=== PATIENT | male | born 2000 | race Caucasian/White ===

== ENCOUNTER 2021-04-16 12:13 | Emergency (ER) | payer MEDICAID ==
[~2021-04-16] VITALS: Ht 177.8 cm; Wt 75.0 kg
[2021-04-16 13:12] LABS: BASOPHILS % 0.5 % (0.0-2.0); EOSINOPHILS % 3.7 % (0.0-5.0); HEMATOCRIT. 47.4 % (42.0-52.0); HEMOGLOBIN. 16.5 g/dL (14.0-18.0); LYMPHOCYTES % 27.8 % (20.0-50.0); MEAN CORPUSCULAR HEMOGLOBIN 31.3 pg (28.0-32.0); MEAN CORPUSCULAR VOLUME 89.6 fL (80.0-94.0); MEAN PLATELET VOLUME 7.6 fl (7.4-10.4); MONOCYTES % 6.9 % (2.0-8.0); NEUTROPHILS % 61.1 % (40.0-76.0); PLATELET 286 x1000/uL (130-400); RED BLOOD CELL COUNT 5.29 mill/uL (4.7-6.1); RED CELL DISTRIBUTION WIDTH 12.9 % (11.6-14.6)
[2021-04-16 13:17] LABS: CHLORIDE 103 mEq/L (98-107)
[2021-04-16 15:56] VITALS: BP 114/73
== END 2021-04-16 16:20 | disposition home or self-care (01) ==
LOC: ER 12:13
DX: R16.0 Hepatomegaly, not elsewhere classified (principal); R10.11 Right upper quadrant pain; E11.9 Type 2 diabetes mellitus without complications; Z91.013 Allergy to seafood
CPT/HCPCS: 36415; 76705; 80053; 85025; 99284

== ENCOUNTER 2023-09-24 09:54 | Emergency (ER) | payer MEDICAID, OTHER ==
[~2023-09-24] VITALS: Ht 172.7 cm; Wt 68.0 kg
[2023-09-24 10:05] VITALS: BP 128/87; TEMP 98.4; O2SAT 99
[2023-09-24 10:08] VITALS: PULSE 102
[2023-09-24 11:00] LABS: BASOPHILS % 0.4 % (0.0-2.0); DIFFERENTIAL COMMENT 0; EOSINOPHILS % 1.5 % (0.0-5.0); HEMATOCRIT. 43.4 % (42.0-52.0); HEMOGLOBIN. 15.5 g/dL (14.0-18.0); LYMPHOCYTES % 19.1 % (20.0-50.0); MEAN CORPUSCULAR HGB CONC 35.7 g/dL (31.0-37.0); MEAN CORPUSCULAR VOLUME 89.7 fL (80.0-94.0); MEAN PLATELET VOLUME 7.4 fl (7.4-10.4); MONOCYTES % 7.1 % (2.0-8.0); NEUTROPHILS % 71.9 % (40.0-76.0); PLATELET 328 x1000/uL (130-400); RED BLOOD CELL COUNT 4.84 mill/uL (4.7-6.1); RED CELL DISTRIBUTION WIDTH 13.4 % (11.6-14.6); WHITE BLOOD COUNT 9.9 x1000/uL (4.5-11.0)
[2023-09-24] MEDS ORDERED: LORAZEPAM 1MG TABLET PO ONE (11:15)
[2023-09-24 11:23] LABS: CALCIUM 9.7 mg/dL (8.7-10.4); CARBON DIOXIDE 21 mEq/L (21-32); CHLORIDE 101 mEq/L (98-107); CREATININE 0.8 mg/dL (0.6-1.3); GLUCOSE 260 mg/dL (70-105); POTASSIUM 4.3 mEq/L (3.5-5.1); SODIUM 134 mEq/L (136-145); UREA NITROGEN BLOOD 9 mg/dL (9-23)
[2023-09-24 11:31] LABS: TROPONIN I HIGH SENSITIVITY < 4 ng/L (3.0-53)
[2023-09-24 13:07] LABS: TROPONIN I HIGH SENSITIVITY < 4 ng/L (3.0-53)
[2023-09-24] MEDS: LORAZEPAM 1MG TABLET PO NR (13:29)
== END 2023-09-24 14:45 | disposition home or self-care (01) ==
LOC: ER 09:54
DX: R07.9 Chest pain, unspecified (principal); E11.9 Type 2 diabetes mellitus without complications; Z91.013 Allergy to seafood
CPT/HCPCS: 36415; 71045; 80048; 84484; 85025; 93005; 99285